=== PATIENT | female | born 1965 | race African-American/Black ===

== ENCOUNTER 2024-12-10 13:38 | Emergency (ER) | payer OTHER ==
[2024-12-10] MEDS ORDERED: Amoxicillin/Potassium Clav 875 MG TAB ONE (16:36)
[2024-12-10] MEDS ORDERED: HYDROcodone/Acetaminophen 10/325 mg Tablet ONE (16:37)
== END 2024-12-10 17:20 | disposition home or self-care (01) ==
LOC: ERS 13:38
DX: S02.42XA Fracture of alveolus of maxilla, initial encounter for closed fracture (principal); S02.2XXA Fracture of nasal bones, initial encounter for closed fracture; I10 Essential (primary) hypertension; J44.9 Chronic obstructive pulmonary disease, unspecified; E11.9 Type 2 diabetes mellitus without complications; F17.200 Nicotine dependence, unspecified, uncomplicated; Z79.82 Long term (current) use of aspirin; Z79.899 Other long term (current) drug therapy; Z79.84 Long term (current) use of oral hypoglycemic drugs; Z55.6 Problems related to health literacy; W01.0XXA Fall on same level from slipping, tripping and stumbling without subsequent striking against object, initial encounter
CPT/HCPCS: 36416; 70450; 70486; 72125; 93005